=== PATIENT | female | born 1950 | race African-American/Black ===

== ENCOUNTER 2017-06-15 11:34 | Outpatient (CLI) | payer MEDICARE ==
--- NOTE | 2017-06-15 15:29 | RAD ---
ABDOMEN 2 VIEWS: Date: 06/15/17 HISTORY: Abdominal mass. FINDINGS: No comparison. Large amount of stool is apparent throughout the colon and rectum. No differential air fluid levels or free intraperitoneal gas are apparent. Metallic clips overlie the gallbladder fossa. IMPRESSION: 1. Constipation. 2. Nonspecific small bowel gas pattern. 3. Status post cholecystectomy. POS: [facility]
== END 2017-06-15 11:35 | disposition home or self-care (01) ==
LOC: RAD 11:34
PROVIDERS: ATTEND Family Medicine
DX: R19.04 Left lower quadrant abdominal swelling, mass and lump (principal); R19.03 Right lower quadrant abdominal swelling, mass and lump; K59.00 Constipation, unspecified; K56.699 Other intestinal obstruction unspecified as to partial versus complete obstruction; Z90.49 Acquired absence of other specified parts of digestive tract
CPT/HCPCS: 36415; 74020; 80053; 80061; 81003; 82043; 83036; 84100; 84165; 84439; 84443; 84481; 85007; 85027

== ENCOUNTER 2017-09-28 14:47 | Observation (INO) | payer MEDICARE ==
[2017-09-28 16:00] LABS: #Lymphocytes 1.4 thou/uL (1.20-3.40); #Monocytes 0.3 thou/uL (0.11-0.59); #Neutrophils 2.4 thou/uL (1.40-6.50); %Basophils 0.1 % (0.0-1.0); %Eosinophils 0.9 % (0.0-10.0); %Lymphocytes 33.2 % (21.0-51.0); %Monocytes 6.3 % (0.0-10.0); %Neutrophils 59.5 % (42.0-75.0); Hemoglobin 15.8 g/dL (12.0-16.0); Mean Corpuscular HGB CONC 32.8 g/dL (32.0-36.0); Mean Corpuscular Hemoglobin 31.2 pg (27.0-31.0); Mean Corpuscular Volume 95.2 fl (81.0-99.0); Mean Platelet Volume 8.7 fL (7.4-10.4); Platelet Count 233 thou/uL (130-400); RBC Distribution Width 11.9 % (11.5-14.5); Red Blood Cell (RBC) Count 5.06 mill/uL (4.20-5.40); White Blood Cell (WBC) Count 4.1 thou/uL (4.8-10.8)
[2017-09-28] MEDS ORDERED: Acetaminophen 325 MG TAB ONE (16:23)
--- NOTE | 2017-09-28 16:32 | RAD ---
CHEST TWO VIEWS 09/28/17 HISTORY: Fever. Chest pain. FINDINGS: The cardiac silhouette and pulmonary vasculature are unremarkable. Mediastinum is midline with aortic calcification. There is no confluent air space consolidation, pneumothorax or pleural fluid apparent . Metallic clips overlie the gallbladder fossa. IMPRESSION: 1. Atherosclerosis. 2. No active cardiopulmonary abnormalities are demonstrated. POS: [facility]
[2017-09-28 16:34] LABS: CKMB 3.1 ng/mL (0-6.6)
[2017-09-28] MEDS ORDERED: ISOVUE-370 76%-LOCM 1 ML ONE (16:44)
[2017-09-28] MEDS ORDERED: Iopamidol 370 76% 50 ML VIAL FS ONE (16:44)
[2017-09-28 16:47] LABS: ALT (SGPT) 17 U/L (8-55); AST (SGOT) 26 U/L (5-34); Albumin 4.4 g/dL (3.4-4.8); Alkaline Phosphatase 76 U/L (40-150); Anion Gap 15 mmol/L (10-20); BUN (Urea Nitrogen) 27 mg/dL (9.8-20.1); Bilirubin, Total 0.9 mg/dL (0.2-1.2); Calc. Creatinine Clearance 0 mL/min (70-130); Calcium 10.1 mg/dL (7.8-10.44); Carbon Dioxide 27 mmol/L (23-31); Chloride 97 mmol/L (98-107); Estimated GFR-MDRD 44; Glucose 102 mg/dL (80-115); Lipase 15 U/L (8-78); Potassium 3.9 mmol/L (3.5-5.1); Protein, Total 8.4 g/dL (6.0-8.3); Sodium 135 mmol/L (136-145)
[2017-09-28 18:22] LABS: Bilirubin Negative (Negative); Blood, Urine Negative (Negative); Clarity CLEAR (Clear); Glucose, Urine (Dipstick) Negative (Negative); Leukocyte Trace (Negative); Nitrite Negative (Negative); Protein, Urine (Dipstick) Trace mg/dL (Neg-Trace); Urobilinogen 0.2 mg/dL (0.2-1.0)
[2017-09-28 18:25] LABS: Bacteria/HPF None Seen HPF (None Seen); Hyaline Casts/LPF 0-3 HYALINE CAST LPF (0-3 Hyaline); Pathc Cast-AUWi Flag 0.27 (0-2.49); Squamous Epithelial 0-3 HPF (0-3); WBC/HPF 0-3 HPF (0-3)
[2017-09-28] MEDS ORDERED: Dextrose 50% Abboject 50 ML SYRINGE ONE (18:34)
--- NOTE | 2017-09-28 19:27 | CT ---
CT ABDOMEN AND PELVIS WITH IV CONTRAST 09/28/17 Multiple axial tomograms obtained with IV enhancement. Oral contrast was given. HISTORY: Abdominal pain, weakness. Lung bases are clear of infiltrate. Liver, spleen, and pancreas are unremarkable. The adrenal glands and kidneys are unremarkable. No hyd ronephrosis. There is a small cyst in the medial left renal cortex measuring approximately 1.5 cm. S mall bowel loops appear unremarkable. Appendix appears normal. There is contrast in the colon. Stool throughout the colon. No CT evidence of diverticulitis. Aorta is normal caliber. Images through the p yancy show evidence of hysterectomy. IMPRESSION: No acute process identified. POS: [facility]
[2017-09-28 19:58] LABS: Troponin I 0.022 ng/mL (< 0.028)
[2017-09-28] MEDS ORDERED: Ondansetron HCl/PF 4 MG/2 ML Vial IVP PRN (20:10)
[2017-09-28] MEDS ORDERED: Acetaminophen 650 MG Suppository PR PRN (20:10)
[2017-09-28] MEDS ORDERED: Bisacodyl 5 MG TAB PO PRN (20:10)
[2017-09-28] MEDS ORDERED: cefTRIAXone\\ROCEPHIN 1 GM in Sodium Chloride 0.9% 100 ML IVPB SCH (20:15)
[2017-09-28] MEDS ORDERED: Dextrose 50% Abboject 50 ML SYRINGE SLOW IVP PRN (20:20)
[2017-09-28] MEDS ORDERED: Dextrose 5% in Water 1,000 ML IV PRN (20:20)
[2017-09-28] MEDS ORDERED: hydrALAZINE 20 MG/ML VIAL SLOW IVP PRN (20:22)
[2017-09-28 20:31] VITALS: BMI 26.9
--- NOTE | 2017-09-28 21:17 | HP ---
PRIMARY CARE PHYSICIAN: Cintia Ann MD CHIEF COMPLAINT: Generalized weakness. HISTORY OF PRESENT ILLNESS: Ms. Wagner is a pleasant 67-year-old lady, who was seen at [facility] on 09/28/2017. She reports that she has been feeling unwell over the last 2 week s. She reports generalized body aches, chills. She also reports chest tightness, retrosternal, radi ating to the left jaw, on and off, no known aggravating or relieving factors, accompanied by nausea, 8/10 at its worst. She reports a dry cough. She reports shortness of breath with the chest pain. She was seen by her primary care physician about a week ago. She is unclear what medication she rece ived. REVIEW OF SYSTEMS: The following complete review of systems was negative, unless otherwise mentioned in the HPI or below: Constitutional: Weight loss or gain, ability to conduct usual activities. Skin: Rash, itching. Eyes: Double vision, pain. ENT/Mouth: Nose bleeding, neck stiffness, pain, tenderness. Cardiovascular: Palpitations, dyspnea on exertion, orthopnea. Respiratory: Shortness of breath, wheezing, cough, hemoptysis, fever or night sweats. Gastrointestinal: Poor appetite, abdominal pain, heartburn, nausea, vomiting, constipation, or diarr hea. Genitourinary: Urgency, frequency, dysuria, nocturia. Musculoskeletal: Pain, swelling. Neurologic/Psychiatric: Anxiety, depression. Allergy/Immunologic: Skin rash, bleeding tendency. PAST MEDICAL HISTORY: Significant for diabetes mellitus, type 2; hypertension; and hypercalcemia. PAST SURGICAL HISTORY: Significant for cholecystectomy, section, and hysterectomy. FAMILY HISTORY: Significant for myocardial infarction in her paternal grandfather. SOCIAL HISTORY: The patient denies tobacco use, alcohol use or recreational drug use. She lives wit h her grandson. CODE STATUS: I discussed her code status. She is FULL CODE. ALLERGIES: No known drug allergies. CURRENT MEDICATIONS: The patient is unable to recall the names of her medications. PHYSICAL EXAMINATION: GENERAL: On examination, Ms. Wagner is sleepy, but arousable, not in acute distress. She appears tir ed. VITAL SIGNS: Blood pressure is 198/106, pulse is 80, she is breathing at rate of 18, and saturating 96% on room air. She is afebrile. EYES: No scleral icterus. No conjunctival pallor. ENT: Dry mucosal membranes, no oropharyngeal erythema or exudates. NECK: Supple, nontender, trachea is midline, no thyromegaly. RESPIRATORY: Accessory muscles of breathing are not active. Chest wall movements are symmetric bila terally. Lungs are clear to auscultation without wheeze, rhonchi or crepitations. CARDIOVASCULAR: S1 and S2 are heard, regular. Peripheral pulses palpable. No carotid bruit, no per icardial rub. ABDOMEN: Soft, nontender, bowel sounds are heard, no hepatomegaly, no splenomegaly. LYMPHATIC: No cervical lymphadenopathy. NEUROLOGIC: Cranial nerves II-XII are intact. Deep tendon reflexes are 2+. MUSCULOSKELETAL: Power is 5/5 in all 4 extremities. PSYCHIATRIC: Normal mood, normal affect, patient is oriented to person and place, not to time. LABORATORY DATA AND IMAGING: Ms. Wagner's labs and investigations were reviewed. I reviewed her elec trocardiogram, which shows normal sinus rhythm, no ST changes to suggest an acute coronary syndrome. I also reviewed her chest x-ray, which does not show any pulmonary infiltrates. She also had a CT s can of the abdomen and pelvis done with IV contrast, which did not reveal any acute process. Laborat ory investigation show leukopenia with 4100 white cells, normal hemoglobin, normal platelet count, hy ponatremia with sodium of 135, potassium 3.9, blood urea nitrogen elevated at 27, creatinine elevated at 1.43, last known creatinine values were 1.14 on 09/21/2017 and 1.00 on 06/15/2017. Point of care glucose level low at 44 at 1832 hours, improved to 216 at 1930 hours, unremarkable liver profile, no rmal lipase and troponin I indeterminate at 0.040 at 1547 hours and normal at 0.022 at 1913 hours. U rinalysis is positive for trace leukocyte esterase. Urine cultures from 09/21/2017 are growing beta hemolytic streptococcus and gram negative maxim. The gram negative maxim was low colony count and no fur ther workup was performed. ASSESSMENT AND PLAN: Ms. Wagner is a pleasant 67-year-old lady who was seen at [facility] on 09/28/2017. Her problem list includes: 1. Chest pain: She does report having chest pain that is radiating to her jaw. She has significant risk factors for coronary artery disease. She will be admitted to the hospital for telemetry monito ring and to rule out acute coronary syndrome. We will check stress test. We will also check D-dimer to rule out pulmonary embolism. 2. Generalized weakness: Could be secondary to recent flu-like illness. She also has urinary tract infection. We will provide intravenous hydration and reassess. 3. Urinary tract infection: We will start the patient on intravenous ceftriaxone for now and reasse ss. 4. Acute kidney injury: Likely prerenal, given her history of poor oral intake. Provide intravenou s hydration and recheck creatinine and electrolytes. 5. Diabetes mellitus: Start Accu-Cheks and insulin sliding scale. 6. Hypertension: Resume home medications once clarified, monitor vital signs and titrate antihypert ensives as needed. 7. History of hypercalcemia: Her calcium level is normal today. Please note that patient's influenza screen was negative today. Many thanks for allowing me to participate in your patient's care. Please feel free to contact me wi th any questions or concerns. LEVEL OF RISK: High. LEVEL OF COMPLEXITY: High.
[2017-09-28] MEDS: Heparin 5,000 UNITS/ML VIAL SC SCH (22:00)
[2017-09-28] MEDS: cefTRIAXone\\ROCEPHIN 1 GM, Syringe 0.4 ML in Sterile Water 9.6 ML SLOW IVP SCH (22:01)
[2017-09-28] MEDS: Sodium Chloride 0.9% 1,000 ML IV SCH (22:01)
[2017-09-28] MEDS: HumaLOG 300 UNITS/3 ML VIAL SC PRN (22:01)
[2017-09-29] MEDS: Acetaminophen 325 MG TAB PO PRN ×2 (05:08→19:02)
[2017-09-29 05:22] LABS: #Basophils 0.1 thou/uL (0.0-0.2); #Lymphocytes 2.7 thou/uL (1.20-3.40); #Monocytes 0.5 thou/uL (0.11-0.59); #Neutrophils 2.7 thou/uL (1.40-6.50); %Basophils 1.1 % (0.0-1.0); %Eosinophils 0.8 % (0.0-10.0); %Lymphocytes 44.5 % (21.0-51.0); %Monocytes 8.8 % (0.0-10.0); %Neutrophils 44.9 % (42.0-75.0); Hemoglobin 13.3 g/dL (12.0-16.0); Mean Corpuscular HGB CONC 32.4 g/dL (32.0-36.0); Mean Corpuscular Hemoglobin 30.9 pg (27.0-31.0); Mean Corpuscular Volume 95.3 fl (81.0-99.0); Mean Platelet Volume 8.8 fL (7.4-10.4); Platelet Count 206 thou/uL (130-400); RBC Distribution Width 11.9 % (11.5-14.5); Red Blood Cell (RBC) Count 4.32 mill/uL (4.20-5.40)
[2017-09-29 05:43] LABS: Anion Gap 13 mmol/L (10-20); BUN (Urea Nitrogen) 26 mg/dL (9.8-20.1); Calc. Creatinine Clearance 52 mL/min (70-130); Carbon Dioxide 26 mmol/L (23-31); Chloride 101 mmol/L (98-107); Estimated GFR-MDRD 53; Glucose 178 mg/dL (80-115); Potassium 4.2 mmol/L (3.5-5.1); Sodium 136 mmol/L (136-145)
[2017-09-29] MEDS: Aspirin 325 MG TAB PO SCH (07:47)
[2017-09-29] MEDS: Sodium Chloride 0.9% 1,000 ML IV SCH ×3 (07:47→20:47)
[2017-09-29] MEDS: Heparin 5,000 UNITS/ML VIAL SC SCH ×3 (11:48→20:41)
--- NOTE | 2017-09-29 12:16 | NM ---
RADIONUCLIDE STRESS REST MYOCARDIAL PERFUSION SCAN WITH CT ATTENUATION CORRECTION AND SPECT IMAGING LEFT VENTRICULAR WALL MOTION EVALUATION AND EJECTION FRACTION: HISTORY: Chest pain. FINDINGS: Adenosine protocol was used. There is heterogeneous uptake of radiotracer throughout the left ventri cular myocardium without focal perfusion defect or reversibility. QGS analysis of gated SPECT images shows no focal wall motion abnormalities. The left ventricular ejection fraction at 59%. IMPRESSION: Normal myocardial perfusion scan. Normal left ventricular ejection fraction. POS: [facility]
--- NOTE | 2017-09-29 17:02 | PDOC.PN ---
- Subjective Encounter Start Date: 09/29/17 Encounter Start Time: 16:59 Pt seen for followup re: chest pain. Feels better. No chest pain, shortness of breath. Weakness is better. - Objective Resuscitation Status: Resuscitation Status FULL:Full Resuscitation MAR Reviewed: Yes Vital Signs & Weight: Vital Signs (12 hours) Temp Pulse Resp BP Pulse Ox 09/29/17 15:35 99.3 F 82 16 182/86 H 96 09/29/17 12:00 84 15 149/78 H 97 09/29/17 07:52 98.4 F 80 16 09/29/17 07:12 98.9 F 95 20 117/69 97 09/29/17 05:13 98.4 F 80 16 135/75 98 Weight Weight 167 lb 4.8 oz I&O: 09/28/17 09/29/17 09/30/17 06:59 06:59 06:59 Intake Total 107 Balance 107 Result Diagrams: 09/30/17 04:29 09/30/17 04:29 Additional Labs: Accuchecks 09/29/17 09/29/17 09/29/17 13:57 12:03 09:22 POC Glucose 310 H 305 H 115 H 09/29/17 09/29/17 09/28/17 08:55 05:08 20:25 POC Glucose 48 L* 145 H 300 H 09/28/17 09/28/17 19:30 18:32 POC Glucose 216 H 44 L* EKG Reviewed by me: Yes (Tele: NSR) Phys Exam - Physical Examination Constitutional: NAD HEENT: moist MMs Neck: supple Respiratory: clear to auscultation bilateral Cardiovascular: RRR Gastrointestinal: soft Musculoskeletal: pulses present Neurological: moves all 4 limbs Psychiatric: normal affect Skin: no rash Dx/Plan (1) Chest pain Code(s): R07.9 - CHEST PAIN, UNSPECIFIED Status: Acute (2) Hypoglycemia Code(s): E16.2 - HYPOGLYCEMIA, UNSPECIFIED Status: Acute (3) UTI (urinary tract infection) Status: Acute (4) SWATI (acute kidney injury) Code(s): N17.9 - ACUTE KIDNEY FAILURE, UNSPECIFIED Status: Acute (5) HTN (hypertension) Code(s): I10 - ESSENTIAL (PRIMARY) HYPERTENSION Status: Chronic - Plan continue antibiotics, out of bed/ambulate * . Hold insulin. PRN D50 IV. Creatinine improving. Normal stress test, normal d-dimer. Monitor vital signs, titrate antihypertensives as needed. Review of Systems - Review of Systems Constitutional: negative: fever, chills, sweats, weakness, malaise Cardiovascular: negative: chest pain, palpitations, orthopnea, paroxysmal nocturnal dyspnea, edema, light headedness - Medications/Allergies Allergies/Adverse Reactions: Allergies Allergy/AdvReac Type Severity Reaction Status Date / Time No Known Drug Allergies Allergy Verified 09/28/17 20:10 Medications: Current Medications Acetaminophen (Tylenol) 650 mg PO Q4H PRN PRN Reason: Headache/Fever or Pain Last Admin: 09/29/17 05:08 Dose: 650 mg Acetaminophen (Tylenol) 650 mg TN Q4H PRN PRN Reason: Headache/Fever or Pain Aspirin (Aspirin) 325 mg PO DAILY [facility] Last Admin: 09/29/17 07:47 Dose: 325 mg Bisacodyl (Dulcolax) 10 mg PO DAILYPRN PRN PRN Reason: Constipation Dextrose/Water (Dextrose 50%) 25 gm SLOW IVP PRN PRN PRN Reason: Hypoglycemia Glucagon (Glucagon) 1 mg IM PRN PRN PRN Reason: Hypoglycemia Heparin Sodium (Porcine) (Heparin) 5,000 units SC TID [facility] Last Admin: 09/29/17 16:17 Dose: Not Given Hydralazine HCl (Apresoline) 10 mg SLOW IVP Q6H PRN PRN Reason: SBP Greater Than 170 Sodium Chloride (Normal Saline 0.9%) 1,000 mls @ 100 mls/hr IV .Q10H [facility] Last Admin: 09/29/17 07:47 Dose: 1,000 mls Ceftriaxone Sodium 1 gm/ (Syringe 0.4 ml/ Sterile Water) 10 mls @ 120 mls/hr SLOW IVP 2100 [facility] Last Admin: 09/28/17 22:01 Dose: 10 mls Dextrose/Water (D5w) 1,000 mls @ 0 mls/hr IV .Q0M PRN; As Directed PRN Reason: Hypoglycemia Insulin Human Lispro (Humalog) 0 units SC .MILD SLIDING SCALE PRN PRN Reason: Mild Correctional Scale Last Admin: 09/28/17 22:01 Dose: 4 unit Ondansetron HCl (Zofran) 4 mg IVP Q6H PRN PRN Reason: Nausea/Vomiting Last Admin: 09/29/17 05:08 Dose: 4 mg
[2017-09-29] MEDS ORDERED: Melatonin 3 MG TAB PO SCH (19:15)
[2017-09-29] MEDS: Carvedilol 6.25 MG TAB PO SCH (20:40)
[2017-09-29] MEDS: cefTRIAXone\\ROCEPHIN 1 GM, Syringe 0.4 ML in Sterile Water 9.6 ML SLOW IVP SCH (20:41)
[2017-09-29] MEDS: hydrALAZINE 10 MG TAB PO SCH (20:41)
[2017-09-30] MEDS ORDERED: diphenhydrAMINE 12.5 MG/5 ML UDCUP PO SCH (00:15)
[2017-09-30] MEDS: Loteprednol Etabonate 0.5% Ophth Suspension 5 ml Bottle EA EYE SCH ×3 (00:31→14:48)
[2017-09-30 05:02] LABS: Anion Gap 11 mmol/L (10-20); BUN (Urea Nitrogen) 15 mg/dL (9.8-20.1); Calc. Creatinine Clearance 80 mL/min (70-130); Calcium 8.7 mg/dL (7.8-10.44); Carbon Dioxide 26 mmol/L (23-31); Chloride 108 mmol/L (98-107); Estimated GFR-MDRD 85; Glucose 206 mg/dL (80-115); Potassium 4.2 mmol/L (3.5-5.1); Sodium 141 mmol/L (136-145)
[2017-09-30 05:22] LABS: Eosinophils 2 % (0-10); Hemoglobin 12.3 g/dL (12.0-16.0); Lymphocytes 58 % (21-51); MDiff Complete? YES; Mean Corpuscular HGB CONC 32.5 g/dL (32.0-36.0); Mean Corpuscular Hemoglobin 31.1 pg (27.0-31.0); Mean Platelet Volume 8.6 fL (7.4-10.4); Monocytes 7 % (0-10); Neutrophil 29 % (42-75); Platelet Count 172 thou/uL (130-400); RBC Distribution Width 11.9 % (11.5-14.5); Reactive Lymphocytes 4 % (0-10); Red Blood Cell (RBC) Count 3.94 mill/uL (4.20-5.40); White Blood Cell (WBC) Count 3.7 thou/uL (4.8-10.8)
[2017-09-30] MEDS: HumaLOG 300 UNITS/3 ML VIAL SC PRN (05:55)
[2017-09-30] MEDS: Aspirin 325 MG TAB PO SCH (08:19)
[2017-09-30] MEDS: Heparin 5,000 UNITS/ML VIAL SC SCH ×2 (08:20→15:59)
[2017-09-30] MEDS: hydrALAZINE 10 MG TAB PO SCH (08:20)
[2017-09-30] MEDS: Carvedilol 6.25 MG TAB PO SCH (08:20)
[2017-09-30] MEDS ORDERED: Aspirin 81 mg Enteric Coated Tablet PO SCH (09:00)
[2017-09-30] MEDS ORDERED: DULoxetine 60 MG CAP PO SCH (09:00)
[2017-09-30] MEDS ORDERED: Insulin Detemir 100 UNITS/ML 20 UNITS in Pre-Filled Syringe 1 EACH SC SCH (09:00)
[2017-09-30] MEDS ORDERED: Latanoprost 0.005% Ophth Soln 2.5 ml Bottle EA EYE SCH (09:00)
[2017-09-30] MEDS ORDERED: Amlodipine 10 MG TAB PO SCH (09:00)
[2017-09-30 15:30] VITALS: BP 168/86; TEMP 98.4
[2017-09-30] MEDS ORDERED: Cephalexin 250 MG CAP PO SCH (18:00)
--- NOTE | 2017-09-30 20:28 | DIS ---
DATE OF ADMISSION: 09/28/2017 DATE OF DISCHARGE: 09/30/2017 PRIMARY CARE PHYSICIAN: Cintia Ann M.D. DISCHARGE DIAGNOSES: 1. Chest pain. 2. Urinary tract infection. 3. Hypoglycemia. 4. Acute kidney injury. 5. Dehydration. CONDITION OF PATIENT ON THE DAY OF DISCHARGE: Stable. I assessed Ms. Wagner on the day of discharge. She denies any chest pain or shortness of breath. She denies any fevers or chills. PHYSICAL EXAMINATION: VITAL SIGNS: Stable. HEART: S1 and S2 are heard, regular. LUNGS: Clear to auscultation bilaterally. DISCHARGE MEDICATIONS: Her Lantus dose was decreased to 20 units daily. Actos is on hold. Otherwis e, discharge medications include amlodipine 10 mg daily, aspirin 81 mg daily, Lumigan eye drops 1 bibiana p to each eye at bedtime, carvedilol 12.5 mg 2 times a day, Keflex 250 mg every 6 hours for 1 week, C ymbalta 60 mg daily, Apresoline 10 mg 2 times a day, lisinopril 40 mg daily, Lotemax eye drops 1-2 dr ops to each eye 4 times a day, metformin 1000 mg 2 times a day, pravastatin 20 mg at bedtime, vitamin B6 200 mg daily, timolol 1 drop to each eye daily. HOSPITAL COURSE: Ms. Wagner is a pleasant 67-year-old lady, who was admitted to [facility] for chest pain, dehydration, and acute kidney injury on 09/28/2017. She improved with intravenous fluids. She had a nuclear stress test, which was normal, with a normal left ventricular ejection fraction. She also had a normal D-dimer. She had episodes of hypoglycemi a. Her Lantus dose was decreased and Actos is on hold. She has been advised to check her blood suga rs 4 times a day and show the readings to her primary care physician in 3-5 days. On 09/30/2017, she had a sodium of 141, potassium 4.2, creatinine 0.81, white count 3700, hemoglobin 12.3, and platelet count 172,000. Her urine cultures from 09/21/2017 grew beta-hemolytic streptococcus and low colony count of gram-neg ative rods. She is started on Keflex. I note that she was treated with ciprofloxacin in the past. Many thanks for allowing me to participate in your patient's care. Please feel free to contact me wi th any questions or concerns. DISCHARGE DESTINATION: Home.
[2017-09-30] MEDS ORDERED: Nitrofurantoin Monohyd/M-Cryst 100 MG CAP PO SCH (21:00)
--- NOTE | 2017-10-11 20:43 | STRESS ---
Acquisition Time: 2017-09-29 10:26:26 Total Exercise Time: 00:04:00 Test Indications: CHEST PAIN Medications: Protocol: ADENOSINE Max HR: 100 BPM 65% of Pred: 152 BPM Max BP: 144/064 mmHG Max Work Load: 1.0 METS RESTING ECG: NORMAL SINUS RHYTHM AT 83 BPM WITH NON-SPECIFIC ST SEGMENT CHANGES SYMPTOMS: DYSPNEA ON EXERTION NORMAL BP RESPONSE ECTOPY: NONE ECG STRESS: NO SIGNIFICANT CHANGES INTERPRETATION: NEGATIVE ECG/AWAIT NUCLEAR IMAGES FOR DEFINITIVE DIAGNOSIS Confirmed by RICCARDO TAYLOR M.D. ([id number]) on 10/11/2017 8:43:07 PM Referred By: MD Sea CAMP Confirmed By:RICCARDO TAYLOR M.D.
== END 2017-09-30 16:43 | disposition home or self-care (01) ==
LOC: ERS 14:47 → 2SW 17:57
PROVIDERS: ADMIT Internal Medicine; ATTEND Internal Medicine
DX: R07.89 Other chest pain (principal); R53.1 Weakness; N39.0 Urinary tract infection, site not specified; E11.649 Type 2 diabetes mellitus with hypoglycemia without coma; N17.9 Acute kidney failure, unspecified; E86.0 Dehydration; I10 Essential (primary) hypertension; Z79.82 Long term (current) use of aspirin; Z90.49 Acquired absence of other specified parts of digestive tract; Z90.710 Acquired absence of both cervix and uterus; Z98.890 Other specified postprocedural states
CPT/HCPCS: 71046; 74177; 78452; 80048 ×2; 80053; 82553; 82962 ×3; 83690; 84484 ×2; 85025 ×3; 85379; 87804 ×2; 93005; 93017; 94760; 96361 ×4; 96374; 96375 ×2; 96376; 99285; A9500; G0378; 36415; 36416; 81003; 81015; A4216; J0360; J0696; J1644; J1815; J2405

== ENCOUNTER 2020-02-02 19:26 | Observation (INO) | payer MEDICARE ==
--- NOTE | 2020-02-02 19:59 | RAD ---
CHEST ONE VIEW: History: Chest pain Comparison: 09-28-17 FINDINGS: The heart size is mildly enlarged. Lungs are hypoinflated with vascular crowding and bibasilar atelec tasis. No pneumothorax. Right upper quadrant surgical clips. Calcific tendinosis of the right rotator cuff. IMPRESSION: Lung hypoinflation with vascular crowding and bibasilar atelectasis. No other acute intrathoracic abn ormality. POS: HOME
[2020-02-02 20:02] LABS: #Eosinphils 0.1 thou/uL (0.0-0.7); #Monocytes 0.4 thou/uL (0.11-0.59); #Neutrophils 2.2 thou/uL (1.40-6.50); %Basophils 0.5 % (0.0-1.0); %Eosinophils 2.1 % (0.0-10.0); %Lymphocytes 42.4 % (21.0-51.0); Hemoglobin 12.6 g/dL (12.0-16.0); Mean Corpuscular HGB CONC 33.2 g/dL (32.0-36.0); Mean Corpuscular Hemoglobin 31.5 pg (27.0-31.0); Mean Corpuscular Volume 95.1 fL (78.0-98.0); Mean Platelet Volume 9.4 fL (7.4-10.4); Platelet Count 173 thou/uL (130-400); RBC Distribution Width 11.8 % (11.5-14.5); Red Blood Cell (RBC) Count 3.99 mill/uL (4.20-5.40); White Blood Cell (WBC) Count 4.7 thou/uL (4.8-10.8)
[2020-02-02] MEDS ORDERED: Ondansetron PF 4 MG/2 ML Vial ONE (20:10)
[2020-02-02] MEDS ORDERED: Nitroglycerin 2% Ointment 1 INCH/1 GM Packet ONE (20:10)
[2020-02-02] MEDS ORDERED: Nitroglycerin 0.4 MG TAB 1 EACH ONE (20:10)
[2020-02-02 20:22] LABS: ALT (SGPT) 11 U/L (8-55); AST (SGOT) 16 U/L (5-34); Albumin 3.8 g/dL (3.4-4.8); Alkaline Phosphatase 86 U/L (40-110); Anion Gap 14 mmol/L (10-20); BUN (Urea Nitrogen) 31 mg/dL (9.8-20.1); Bilirubin, Total 0.6 mg/dL (0.2-1.2); Calc. Creatinine Clearance 0 mL/min (70-130); Calcium 9.4 mg/dL (7.8-10.44); Carbon Dioxide 28 mmol/L (23-31); Chloride 100 mmol/L (98-107); Estimated GFR-MDRD 39; Globulin 3.6 g/dL (2.4-3.5); Glucose 199 mg/dL (80-115); Lipase 31 U/L (8-78); Potassium 3.9 mmol/L (3.5-5.1); Protein, Total 7.4 g/dL (6.0-8.3); Sodium 138 mmol/L (136-145)
[2020-02-02 20:48] LABS: Bacteria/HPF None Seen HPF (None Seen); Bilirubin Negative (Negative); Blood, Urine Negative (Negative); Clarity Clear (Clear); Glucose, Urine (Dipstick) 100 mg/dL (Negative); Leukocyte Negative Leu/uL (Negative); Nitrite Negative (Negative); Protein, Urine (Dipstick) 30 mg/dL (Neg-Trace); RBC/HPF 0-3 HPF (0-3); Squamous Epithelial 0-3 HPF (0-3); Urobilinogen Normal mg/dL (Less than 2); WBC/HPF 0-3 HPF (0-3)
[2020-02-02] MEDS ORDERED: Aspirin Chewable 81 MG TAB ONE (22:32)
[2020-02-02] MEDS ORDERED: Nitroglycerin 0.4 MG TAB (25 Tab Bottle) PO PRN (23:08)
[2020-02-02 23:12] LABS: Troponin I 0.026 ng/mL (< 0.028)
[2020-02-02] MEDS ORDERED: Dextrose 5% in Water 1,000 ML IV PRN (23:12)
[2020-02-02] MEDS ORDERED: Dextrose 50% Abboject 50 ML SYRINGE SLOW IVP PRN (23:12)
[2020-02-02] MEDS ORDERED: HumaLOG 300 UNITS/3 ML VIAL SC PRN (23:12)
[2020-02-02] MEDS ORDERED: Acetaminophen 325 MG TAB PO PRN (23:13)
[2020-02-02] MEDS ORDERED: Mag-Al 1200 mg/1200 mg/30 ML UDCUP PO PRN (23:15)
--- NOTE | 2020-02-02 23:27 | PDOC.HHP ---
Hospitalist HPI - History of Present Illness Multiple complaints History of Present Illness: PCP; None The patient is a 69/F with PMH significant for HTN, HLD, DMII (on insulin), and GERD that presents to the ER for multiple complaints. Reports chest pain x 1 week, located epigastric, describes as "sore throat", non radiating, intermittent, exacerbated and relieved by nothing. Reports eating jalapeno pepper with a meal around the time of onset. Since, she has had this intermittent epigastric pain. Reports some belching and bloating, intermittently. Denies any heart palpitations, lower extremity swelling, orthopnea, SOB, wheezing, cough or hemoptysis. Also reports lower abdominal discomfort, onset 1 week, describes as intermittent pressure, with associated urinary frequency and diarrhea. Denies dysuria or vaginal discharge. Denies nausea and vomiting and blood in stools. Denies fever or chills. Denies any recent travel, antibiotic usage, recent hospitalization. ED Course: VS 98.2, 247/122, 87, 16, 97%RA EKG NSR 87 bpm, t wave inversions in I and AVL, new compared to 09/2017 EKG Trop 0.027 CXR + bibasilar atelectasis Glucose 199 BUN/Creatinine 31/1.60 UA unremarkable CBC unremarkable Given: ASA, nitropaste, Nitro SL x 1, zofran Allergies: NKDA Home Medications: unable to reconcile with patient at bedside. Hospitalist ROS - Review of Systems Constitutional: denies: fever, chills, malaise Eyes: denies: pain, vision change, conjunctivae inflammation, eyelid inflammation, redness, other ENT: denies: ear pain, ear discharge, nose pain, nose discharge, nose congestion , mouth pain, mouth swelling, throat swelling Respiratory: denies: cough, dry, shortness of breath, hemoptysis, SOB with excertion, pleuritic pain, sputum, wheezing Cardiovascular: reports: chest pain. denies: palpitations, orthopnea, paroxysmal noc. dyspnea, edema, light headedness Gastrointestinal: reports: abdominal pain (lower pelvic discomfort), diarrhea. denies: nausea, vomiting, constipation, melena, hematochezia Genitourinary: reports: frequency. denies: dysuria, hematuria, retention Musculoskeletal: denies: neck pain, shoulder pain, arm pain, back pain, hand pain, leg pain, foot pain, other Skin: denies: rash, bruising Neurological: denies: weakness, numbness, incoordination, change in speech, confusion Hospitalist History - Past Medical History Source: patient Cardiac: reports: HTN, Hyperlipidemia Gastrointestinal: reports: GERD Musculoskeletal: reports: Osteoarthritis Endocrine: reports: Diabetes (type II, on insulin) - Past Surgical History Past Surgical History: reports: Cholecystectomy, , Hysterectomy - Family History Family History: reports: cardiac disorder, diabetes mellitus - Social History Smoking Status: Never smoker Alcohol: reports: Occassional Drugs: reports: none Living Situation: With Family Occupation: [place] Activity level: independent ambulation - Exam General Appearance: NAD, awake alert Eye: anicteric sclera ENT: normocephalic atraumatic Neck: supple, no JVD Heart: RRR, no murmur, no gallops, no rubs, normal peripheral pulses Respiratory: CTAB, no wheezes, no rales, no ronchi, normal chest expansion, no tachypnea Gastrointestinal: soft, non-distended, normal bowel sounds, no bruit, no guarding, no rigidity, tender to palpation Gastrointestinal - other findings: mild TTP pelvic, generalized, no rebound Extremities: no cyanosis, no edema Skin: no rashes Neurological: no focal deficits Psychiatric: normal affect, A&O x 3 Hospitalist Results - Labs Result Diagrams: 02/02/20 19:52 02/02/20 19:52 Lab results: WBC 4.7 thou/uL (4.8-10.8) L 02/02/20 19:52 Hgb 12.6 g/dL (12.0-16.0) 02/02/20 19:52 Hct 37.9 % (36.0-47.0) 02/02/20 19:52 MCV 95.1 fL (78.0-98.0) 02/02/20 19:52 Plt Count 173 thou/uL (130-400) 02/02/20 19:52 Neutrophils % 46.0 % (42.0-75.0) 02/02/20 19:52 Sodium 138 mmol/L (136-145) 02/02/20 19:52 Potassium 3.9 mmol/L (3.5-5.1) 02/02/20 19:52 Chloride 100 mmol/L (98-107) 02/02/20 19:52 Carbon Dioxide 28 mmol/L (23-31) 02/02/20 19:52 BUN 31 mg/dL (9.8-20.1) H 02/02/20 19:52 Creatinine 1.60 mg/dL (0.6-1.1) H 02/02/20 19:52 Glucose 199 mg/dL (80-115) H 02/02/20 19:52 Calcium 9.4 mg/dL (7.8-10.44) 02/02/20 19:52 Total Bilirubin 0.6 mg/dL (0.2-1.2) 02/02/20 19:52 AST 16 U/L (5-34) 02/02/20 19:52 ALT 11 U/L (8-55) 02/02/20 19:52 Alkaline Phosphatase 86 U/L (40-110) 02/02/20 19:52 Troponin I 0.026 ng/mL (< 0.028) 02/02/20 22:29 Serum Total Protein 7.4 g/dL (6.0-8.3) 02/02/20 19:52 Albumin 3.8 g/dL (3.4-4.8) 02/02/20 19:52 Lipase 31 U/L (8-78) 02/02/20 19:52 Urine Ketones Negative mg/dL (Negative) 02/02/20 20:32 Urine Blood Negative (Negative) 02/02/20 20:32 Urine Nitrite Negative (Negative) 02/02/20 20:32 Ur Leukocyte Esterase Negative Ryan/uL (Negative) 02/02/20 20:32 Urine RBC 0-3 HPF (0-3) 02/02/20 20:32 Urine WBC 0-3 HPF (0-3) 02/02/20 20:32 Ur Squamous Epith Cells 0-3 HPF (0-3) 02/02/20 20:32 Urine Bacteria None Seen HPF (None Seen) 02/02/20 20:32 - EKG Interpretation EKG: NSR - Radiology Interpretation Chest x-ray Status: report reviewed by nd Hospitalist H&P A/P - Problem (1) Chest pain Code(s): R07.9 - CHEST PAIN, UNSPECIFIED Status: Acute Assessment and Plan: Admit to telemetry floor, observation status Expected length of stay less than 2 midnights EKG SR, new T wave inversions in I and AVL Trop 0.027, CXR no acute findings HEART Score 5 Had negative NM stress test in 2018 Will trend trops Continue ASA, nitro paste Check TSH, FLP, Mag and BNP NPO at midnight NM stress test and echo tomorrow (2) Hypertensive emergency Code(s): I16.1 - HYPERTENSIVE EMERGENCY Status: Acute Assessment and Plan: Presented to ER 243/122, HR 87 Was given nitro in ER she did not take home meds this evening Will restart coreg, hydralazine and clonidine home meds Will continue to monitor BP Will add prn antihypertensives (3) SWATI (acute kidney injury) Code(s): N17.9 - ACUTE KIDNEY FAILURE, UNSPECIFIED Status: Acute Assessment and Plan: no comparison Creatinine 1.60 Will give IVF Recheck BMP in am (4) Diarrhea Code(s): R19.7 - DIARRHEA, UNSPECIFIED Status: Acute Assessment and Plan: Denies any travel or recent ab/hospitalizations WBC 4.7, afebrile, RRR Will check stool studies (5) Urinary frequency Code(s): R35.0 - FREQUENCY OF MICTURITION Status: Acute Assessment and Plan: UA, no WBCs, leukocytes or bacteria Will send UCX (6) DMII (diabetes mellitus, type 2) Status: Chronic Assessment and Plan: Takes lantus 40u q day Humilin 70:30 siding scale WM patient NPO will hold home insulin for now Will add moderate sliding scale AC/HS accuchecks (7) HTN (hypertension) Code(s): I10 - ESSENTIAL (PRIMARY) HYPERTENSION Status: Chronic Assessment and Plan: Will restart home meds when reconciled by nursing (8) HLD (hyperlipidemia) Code(s): E78.5 - HYPERLIPIDEMIA, UNSPECIFIED Status: Chronic Assessment and Plan: will check FLP Will restart statin home med when reconciled by nursing (9) GERD (gastroesophageal reflux disease) Code(s): K21.9 - GASTRO-ESOPHAGEAL REFLUX DISEASE WITHOUT ESOPHAGITIS Status: Acute Assessment and Plan: Will start PPI - Plan Plan: Protonix GI prophylaxis LMWH DVT prophylaxis Full Code Medical decision maker is rebecca Wagner at [phone] Nguyen
[2020-02-02 23:54] VITALS: BMI 28.4
[2020-02-02] MEDS ORDERED: Sodium Chloride 0.9% (PF) 10 ML VIAL FS PRN (23:54)
[2020-02-02] MEDS ORDERED: Magnesium 2 GM/50 ML 2 GM in Premix Bag 1 BAG IVPB SCH (23:59)
[2020-02-02] MEDS ORDERED: Pantoprazole 40 MG VIAL IVP SCH (23:59)
[2020-02-03] MEDS ORDERED: hydrALAZINE 20 MG/ML VIAL SLOW IVP PRN (00:32)
[2020-02-03] MEDS ORDERED: Labetalol HCl 100 MG/20 ML VIAL SLOW IVP PRN (00:32)
[2020-02-03] MEDS ORDERED: cloNIDine 0.1 MG TAB PO SCH ×2 (00:45→09:00)
[2020-02-03] MEDS ORDERED: hydrALAZINE 10 MG TAB PO SCH ×2 (00:45→09:00)
[2020-02-03] MEDS ORDERED: Carvedilol 25 MG TAB PO SCH (00:45)
[2020-02-03] MEDS: Sodium Chloride 0.9% 1,000 ML IV SCH ×2 (00:57→18:09)
[2020-02-03 02:05] LABS: #Basophils 0.1 thou/uL (0.0-0.2); #Eosinphils 0.1 thou/uL (0.0-0.7); #Lymphocytes 1.9 thou/uL (1.20-3.40); #Monocytes 0.4 thou/uL (0.11-0.59); #Neutrophils 1.9 thou/uL (1.40-6.50); %Basophils 1.4 % (0.0-1.0); %Eosinophils 2.6 % (0.0-10.0); %Monocytes 8.6 % (0.0-10.0); %Neutrophils 43.4 % (42.0-75.0); Hemoglobin 12.1 g/dL (12.0-16.0); Mean Corpuscular Hemoglobin 31.6 pg (27.0-31.0); Mean Corpuscular Volume 95.8 fL (78.0-98.0); Mean Platelet Volume 8.8 fL (7.4-10.4); Platelet Count 158 thou/uL (130-400); RBC Distribution Width 11.7 % (11.5-14.5); Red Blood Cell (RBC) Count 3.83 mill/uL (4.20-5.40); White Blood Cell (WBC) Count 4.3 thou/uL (4.8-10.8)
[2020-02-03 02:27] LABS: Troponin I 0.015 ng/mL (< 0.028)
[2020-02-03 02:28] LABS: Anion Gap 12 mmol/L (10-20); BUN (Urea Nitrogen) 34 mg/dL (9.8-20.1); Calc. Creatinine Clearance 46 mL/min (70-130); Calcium 9.5 mg/dL (7.8-10.44); Carbon Dioxide 30 mmol/L (23-31); Cardiac Risk 2.1 (Less than 4.5); Chloride 102 mmol/L (98-107); Cholesterol 154 mg/dl (< 200 Desired); Estimated GFR-MDRD 44; Glucose 219 mg/dL (80-115); HDL Cholesterol 75 mg/dL (>60 Neg Risk); LDL Cholesterol, Calculated 66 mg/dL; Potassium 3.9 mmol/L (3.5-5.1); Sodium 140 mmol/L (136-145); Triglycerides 64 mg/dL (Less than 150)
[2020-02-03] MEDS: Nitroglycerin 2% Ointment 1 INCH/1 GM Packet TOP SCH ×2 (05:03→15:06)
[2020-02-03] MEDS ORDERED: Enoxaparin Sodium 40 MG/0.4 ML SYRINGE SC SCH (09:00)
[2020-02-03] MEDS ORDERED: Aspirin 81 mg Enteric Coated Tablet PO SCH (09:00)
[2020-02-03] MEDS ORDERED: ADENOSINE 60 MG/20 ML VIAL ONE (09:24)
[2020-02-03] MEDS: Carvedilol 25 MG TAB PO SCH ×2 (10:33→18:08)
[2020-02-03 10:36] VITALS: BP 151/93
--- NOTE | 2020-02-03 10:40 | NM ---
EXAM: NM Cardiac Stress W EF WF PROVIDED CLINICAL HISTORY: Chest pain COMPARISON: 09/29/2017 FINDINGS: This examination was performed as a pharmacologic myocardial perfusion stress test. No significant re versible defect is seen between the stress and resting acquisitions. Gated images demonstrate normal ventricular wall motion and wall thickening. Calculated left ventricular ejection fraction is 68%. Left ventricular ejection fraction on prior study was 59%. IMPRESSION: 1. Normal myocardial perfusion study without evidence of a reversible defect seen to suggest ischemia . 2. Normal LVEF of 68%
[2020-02-03] MEDS: HumaLOG 300 UNITS/3 ML VIAL SC PRN ×2 (12:54→17:54)
[2020-02-03 16:21] VITALS: TEMP 98.9
[2020-02-03] MEDS ORDERED: Pantoprazole 40 MG VIAL IVP SCH (21:00)
[2020-02-03] MEDS ORDERED: Simvastatin 5 MG TAB PO SCH (21:00)
--- NOTE | 2020-02-04 04:19 | DIS ---
DATE OF ADMISSION: 02/02/2020 DATE OF DISCHARGE: 02/03/2020 DISCHARGE DIAGNOSES: 1. Gastroesophageal reflux disease. 2. Chest pain secondarily to gastroesophageal reflux disease. 3. Hypertension, labile. 4. Diabetes mellitus type 2, insulin requiring. 5. Chronic kidney disease stage 3. CONSULTATIONS: None. PERTINENT LABORATORY AND X-RAY FINDINGS: Creatinine ranged between 1.43 to 1.60. Estimated GFR ranged between 39 to 44, magnesium level 1.3. Troponin I negative x3. BNP 90. TSH 1.58. Lipase 31. Total cholesterol 154, triglycerides 64, HDL 75, LDL 66. CBC within normal limits. Urinalysis; positive for protein and glucose. Urine culture dated 02/02/2020 showed no growth at 12 hours. Stool lactoferrin positive. Stool culture negative. Campylobacter and Shigella toxin negative 02/03/2020. Portable chest x-ray dated 02/02/2020 showed no acute process. Bibasilar atelectasis noted. Cardiolite stress test dated 02/03/2020 showed no evidence for reversible or fixed ischemia with calculated ejection fraction of 68%. HOSPITAL COURSE: The patient was observed on the telemetry unit after initially presenting with gastroesophageal reflux with chest pain. The patient's history is significant for hypertension, diabetes, hyperlipidemia, and concern for angina. The patient underwent serial cardiac biomarkers x3, which were negative as stated previously. The patient proceeded to Cardiolite stress testing, showing no evidence of reversible or fixed ischemia with calculated ejection fraction of 68%. Screening metabolic panel showed chronic kidney disease, otherwise unremarkable. Current recommendations are for [id number]-env-ybakhgk antacids such as Maalox or Mylanta in addition to continuation of proton pump inhibitor. The patient encouraged to avoid spicy foods and monitor her symptoms for recurrence. I have examined the patient at the time of discharge and discussed followup instructions. The patient verbalized understanding and agreement, ready for discharge on 02/03/2020. DISCHARGE MEDICATIONS: 1. Aspirin 81 mg p.o. daily. 2. Carvedilol 25 mg p.o. b.i.d. 3. Clonidine 0.1 mg p.o. b.i.d. 4. Flonase 1 spray in each naris daily. 5. Gabapentin 100 mg p.o. daily. 6. Hydralazine 10 mg p.o. b.i.d. 7. Glargine insulin 40 units subcutaneously q.a.m. 8. Humulin R 2 to 10 units subcutaneously t.i.d. with meals. 9. Meloxicam 15 mg p.o. daily. 10. Metformin 1000 mg p.o. b.i.d. 11. Omeprazole 40 mg p.o. daily. 12. Simvastatin 5 mg p.o. at bedtime. 13. Sucralfate 1 g p.o. q.i.d. 14. Maalox 30 mL p.o. q.4 hours p.r.n. FOLLOWUP: The patient will follow up with her primary care provider, Dr. Cintia Ann. CONDITION ON DISCHARGE: Stable. ACTIVITY: Ad-rylee. DIET: ADA and heart healthy. CODE STATUS: Full. DISPOSITION: Home on 02/03/2020. Job ID: [id number]
--- NOTE | 2020-02-14 12:06 | EKG ---
Test Reason : Blood Pressure : / mmHG Vent. Rate : 087 BPM Atrial Rate : 087 BPM P-R Int : 178 ms QRS Dur : 076 ms QT Int : 378 ms P-R-T Axes : 046 -14 099 degrees QTc Int : 454 ms Normal sinus rhythm Voltage criteria for left ventricular hypertrophy Nonspecific T wave abnormality Abnormal ECG New T wave inversion I, aVL, compared to 09/28/2017 Confirmed by JEANINE DOZIER DO ([id number]), mapping editor JOSE YUAN ([id number]) on 02/14/2020 12:05:43 PM Referred By: Confirmed By:JEANINE DOZIER DO
--- NOTE | 2020-02-17 11:35 | STRESS ---
Acquisition Time: 2020-02-03 09:00:06 Total Exercise Time: 00:04:00 Test Indications: CHEST PAIN Medications: Protocol: ADENOSINE Max HR: 084 BPM 56% of Pred: 150 BPM Max BP: 140/080 mmHG Max Work Load: 1.0 METS RESTING ECG: NORMAL SINUS RHYTHM AT 74 BPM WITH NON-SPECIFIC T-WAVE CHANGES AND POOR R-WAVE PROGRESSION SYMPTOMS: NONE NORMAL BP RESPONSE ECTOPY: NONE ECG STRESS: NO SIGNIFICANT CHANGES INTERPRETATION: NEGATIVE ECG/AWAIT NUCLEAR IMAGES FOR DEFINITIVE DIAGNOSIS Confirmed by DR. Mansi WOODARD ([id number]), newspaper editor managing HOSSE[facility] HUITRON ([id number]) on 02/17/2020 11:34:57 AM Referred By: EVELYNE HUFF Confirmed By:DR. Mansi WOODARD
== END 2020-02-03 18:09 | disposition home or self-care (01) ==
LOC: ERS 19:26 → 2NO 21:53
PROVIDERS: ADMIT Internal Medicine; ATTEND Internal Medicine
DX: K21.9 Gastro-esophageal reflux disease without esophagitis (principal); R07.89 Other chest pain; I16.1 Hypertensive emergency; I12.9 Hypertensive chronic kidney disease with stage 1 through stage 4 chronic kidney disease, or unspecified chronic kidney disease; E11.22 Type 2 diabetes mellitus with diabetic chronic kidney disease; N18.3 Chronic kidney disease, stage 3 (moderate); N17.9 Acute kidney failure, unspecified; R10.30 Lower abdominal pain, unspecified; R35.0 Frequency of micturition; R19.7 Diarrhea, unspecified; E78.5 Hyperlipidemia, unspecified; M19.90 Unspecified osteoarthritis, unspecified site; Z79.1 Long term (current) use of non-steroidal anti-inflammatories (NSAID); Z79.4 Long term (current) use of insulin; Z79.51 Long term (current) use of inhaled steroids; Z79.82 Long term (current) use of aspirin; Z79.899 Other long term (current) drug therapy
CPT/HCPCS: 71045; 78452; 80048; 80061; 82962; 83630; 83690; 83735; 83880; 84484 ×3; 85025; 87045; 87046; 87086; 87328; 87329; 87427 ×2; 87449; 93005; 93017; 93306; 94760; 96361; 96372; 96374; 96375; 97139; 99285; A9500; G0378 ×2; 36415; 36416; 80053; 81003; 81015; 84443; C9113; J0153; J0360; J1650; J2405; J3475

== ENCOUNTER 2020-06-22 10:57 | Outpatient (CLI) | payer MEDICARE ==
--- NOTE | 2020-06-22 11:29 | CT ---
CT abdomen and pelvis noncontrast HISTORY: Right flank pain. COMPARISON: 09/28/2017. FINDINGS: Each renal collecting system, ureter, and the urinary bladder are decompressed without ston e apparent. Lung bases are clear. Gallbladder is surgically absent. There is calcification within the arterial structures. Lack of contrast limits evaluation of the soft tissues. Cyst at the posterior cortex of the left kidn ey now measures 1.2 cm greatest diameter. No evidence of bowel obstruction or inflammation. Well-circumscribed nodule at the right groin, likely representing a lymph node, is now 1.6 cm greates t diameter. IMPRESSION : No evidence of urinary tract obstruction or calcification. No acute abnormalities are demonstrated. Atherosclerosis.
== END 2020-06-22 10:58 | disposition home or self-care (01) ==
LOC: SCSCT 10:57
PROVIDERS: ATTEND Physician Assistant
DX: R10.10 Upper abdominal pain, unspecified (principal); I70.90 Unspecified atherosclerosis
CPT/HCPCS: 74176

== ENCOUNTER 2022-01-10 19:12 | Observation (INO) | payer MEDICARE ==
[2022-01-10 22:19] VITALS: BMI 24.7
[2022-01-10] MEDS ORDERED: Nitroglycerin 0.4 MG TAB (25 Tab Bottle) SL PRN (23:02)
[2022-01-10] MEDS ORDERED: Ondansetron PF 4 MG/2 ML Vial IVP PRN (23:02)
[2022-01-10] MEDS ORDERED: Acetaminophen 325 MG TAB PO PRN (23:02)
[2022-01-10] MEDS ORDERED: Dextrose 50% Abboject 50 ML SYRINGE SLOW IVP PRN (23:06)
[2022-01-10] MEDS ORDERED: Dextrose 5% in Water 1,000 ML IV PRN (23:06)
[2022-01-10] MEDS ORDERED: HumaLOG 300 UNITS/3 ML VIAL SC PRN (23:06)
[2022-01-10] MEDS ORDERED: Morphine 2 MG/ML VIAL SLOW IVP PRN (23:19)
[2022-01-11] MEDS: hydrALAZINE 20 MG/ML VIAL SLOW IVP PRN ×3 (00:13→14:05)
[2022-01-11 00:47] LABS: Bacteria/HPF None Seen HPF (None Seen); Bilirubin Negative (Negative); Blood, Urine Negative (Negative); Clarity Clear (Clear); Glucose, Urine (Dipstick) 100 mg/dL (Negative); Ketone, Urine Negative (Negative); Leukocyte Negative Leu/uL (Negative); Nitrite Negative (Negative); Protein, Urine (Dipstick) Negative (Neg-Trace); RBC/HPF 0-3 HPF (0-3); Squamous Epithelial None Seen HPF (0-3); Urobilinogen Normal mg/dL (Less than 2); WBC/HPF 0-3 HPF (0-3)
[2022-01-11 00:50] LABS: Urine Culture Reflex No No
[2022-01-11 02:26] LABS: #Eosinphils 0.1 thou/uL (0.0-0.7); #Lymphocytes 1.5 thou/uL (1.20-3.40); #Monocytes 0.4 thou/uL (0.11-0.59); #Neutrophils 1.1 thou/uL (1.40-6.50); %Basophils 0.8 % (0.0-1.0); %Eosinophils 3.1 % (0.0-10.0); %Lymphocytes 48.5 % (21.0-51.0); %Monocytes 11.8 % (0.0-10.0); %Neutrophils 35.9 % (42.0-75.0); Hemoglobin 11.1 g/dL (12.0-16.0); Mean Corpuscular HGB CONC 32.2 g/dL (32.0-36.0); Mean Corpuscular Hemoglobin 29.6 pg (27.0-31.0); Mean Corpuscular Volume 91.9 fL (78.0-98.0); Mean Platelet Volume 7.9 fL (7.4-10.4); Platelet Count 163 thou/uL (130-400); RBC Distribution Width 13.1 % (11.5-14.5); Red Blood Cell (RBC) Count 3.75 mill/uL (4.20-5.40)
[2022-01-11 02:42] LABS: Hemoglobin A1c 8.2 % (4.0-6.0)
[2022-01-11 02:45] LABS: Troponin I 0.018 ng/mL (< 0.028)
[2022-01-11 02:50] LABS: Anion Gap 13 mmol/L (10-20); BUN (Urea Nitrogen) 21 mg/dL (9.8-20.1); Calc. Creatinine Clearance 54 mL/min (70-130); Calcium 9.3 mg/dL (7.8-10.44); Carbon Dioxide 24 mmol/L (23-31); Cardiac Risk 1.9 (Less than 4.5); Chloride 105 mmol/L (98-107); Cholesterol 165 mg/dl (< 200 Desired); Glucose 175 mg/dL (83-110); HDL Cholesterol 86 mg/dL (>60 Neg Risk); LDL Cholesterol, Calculated 71 mg/dL; Potassium 3.7 mmol/L (3.5-5.1); Sodium 138 mmol/L (136-145); Triglycerides 41 mg/dL (Less than 150)
[2022-01-11] MEDS ORDERED: Ondansetron PF 4 MG/2 ML Vial IVP PRN (03:00)
[2022-01-11] MEDS ORDERED: ADENOSINE 60 MG/20 ML VIAL ONE (08:45)
[2022-01-11] MEDS: Heparin 5,000 UNITS/ML VIAL SC SCH ×2 (09:23→20:03)
[2022-01-11] MEDS: Aspirin Chewable 81 MG TAB PO SCH (09:23)
[2022-01-11 11:58] LABS: SARS-CoV-2 PCR by NAA Not Detected (NotDetected)
[2022-01-11] MEDS: HumaLOG 300 UNITS/3 ML VIAL SC PRN (18:15)
[2022-01-11] MEDS: Gabapentin 100 MG CAP PO SCH (20:02)
[2022-01-11] MEDS: hydrALAZINE 25 MG TAB PO SCH (20:03)
[2022-01-11] MEDS: Sucralfate 1 GM TAB PO SCH (20:34)
[2022-01-11] MEDS ORDERED: Oxybutynin ER 5 MG TAB PO SCH (21:00)
[2022-01-11] MEDS ORDERED: Simvastatin 5 MG TAB PO SCH (21:00)
[2022-01-11] MEDS: Mometasone 200 MCG/Formoterol 5 MCG 120 PUFF INHALER INH SCH (23:42)
[2022-01-12 04:44] LABS: #Eosinphils 0.1 thou/uL (0.0-0.7); #Lymphocytes 1.3 thou/uL (1.20-3.40); #Monocytes 0.3 thou/uL (0.11-0.59); #Neutrophils 1.1 thou/uL (1.40-6.50); %Basophils 1.5 % (0.0-1.0); %Eosinophils 3.1 % (0.0-10.0); %Lymphocytes 45.9 % (21.0-51.0); %Monocytes 10.9 % (0.0-10.0); %Neutrophils 38.7 % (42.0-75.0); Hemoglobin 11.4 g/dL (12.0-16.0); Mean Corpuscular HGB CONC 31.9 g/dL (32.0-36.0); Mean Corpuscular Hemoglobin 29.5 pg (27.0-31.0); Mean Corpuscular Volume 92.2 fL (78.0-98.0); Mean Platelet Volume 7.8 fL (7.4-10.4); Platelet Count 171 thou/uL (130-400); Red Blood Cell (RBC) Count 3.86 mill/uL (4.20-5.40); White Blood Cell (WBC) Count 2.9 thou/uL (4.8-10.8)
[2022-01-12 05:04] LABS: Anion Gap 9 mmol/L (10-20); BUN (Urea Nitrogen) 25 mg/dL (9.8-20.1); Calc. Creatinine Clearance 42 mL/min (70-130); Calcium 9.3 mg/dL (7.8-10.44); Carbon Dioxide 28 mmol/L (23-31); Chloride 105 mmol/L (98-107); Glucose 197 mg/dL (83-110); Potassium 4.2 mmol/L (3.5-5.1); Sodium 138 mmol/L (136-145)
[2022-01-12] MEDS: HumaLOG 300 UNITS/3 ML VIAL SC PRN ×2 (05:31→12:21)
[2022-01-12] MEDS: Mometasone 200 MCG/Formoterol 5 MCG 120 PUFF INHALER INH SCH (07:29)
[2022-01-12] MEDS ORDERED: Glimepiride 2 MG TAB PO SCH (08:00)
[2022-01-12] MEDS ORDERED: Regadenoson 0.4 MG/5 ML SYRINGE ONE (08:47)
[2022-01-12] MEDS ORDERED: Amlodipine 10 MG TAB PO SCH (09:00)
[2022-01-12] MEDS ORDERED: Latanoprost 0.005% Ophth Soln 2.5 ml Bottle EA EYE SCH (09:00)
[2022-01-12] MEDS ORDERED: Carvedilol 6.25 MG TAB PO SCH (09:00)
[2022-01-12] MEDS ORDERED: Furosemide 20 MG TAB PO SCH (09:00)
[2022-01-12] MEDS: Gabapentin 100 MG CAP PO SCH (11:19)
[2022-01-12] MEDS: Aspirin Chewable 81 MG TAB PO SCH (11:19)
[2022-01-12] MEDS: hydrALAZINE 25 MG TAB PO SCH (11:21)
[2022-01-12] MEDS: Sucralfate 1 GM TAB PO SCH (11:22)
[2022-01-12] MEDS: Heparin 5,000 UNITS/ML VIAL SC SCH (14:36)
[2022-01-12 15:51] VITALS: BP 124/69; TEMP 97.9
== END 2022-01-12 15:45 | disposition home or self-care (01) ==
LOC: 2SW 19:12
PROVIDERS: ADMIT Internal Medicine; ATTEND Internal Medicine
DX: R07.2 Precordial pain (principal); I13.0 Hypertensive heart and chronic kidney disease with heart failure and stage 1 through stage 4 chronic kidney disease, or unspecified chronic kidney disease; E11.22 Type 2 diabetes mellitus with diabetic chronic kidney disease; N18.30 Chronic kidney disease, stage 3 unspecified; I50.32 Chronic diastolic (congestive) heart failure; D63.1 Anemia in chronic kidney disease; E11.40 Type 2 diabetes mellitus with diabetic neuropathy, unspecified; I27.20 Pulmonary hypertension, unspecified; E11.65 Type 2 diabetes mellitus with hyperglycemia; Z87.891 Personal history of nicotine dependence; Z79.82 Long term (current) use of aspirin; Z79.84 Long term (current) use of oral hypoglycemic drugs; Z79.899 Other long term (current) drug therapy; Z88.8 Allergy status to other drugs, medicaments and biological substances; Z20.822 Contact with and (suspected) exposure to COVID-19
CPT/HCPCS: 71275; 78452; 80048 ×2; 80061; 81001; 82962 ×2; 83036; 84484 ×2; 85025 ×2; 85379; 93005; 93017; 94640 ×2; 94760 ×2; A9500; J2270; U0003; U0005; 36415; 36416; 93010; 96372; 96374; 96375; 96376; G0378; J0153; J0360; J1644; J1815; J2785